=== PATIENT | male | born 1965 | race Caucasian/White ===

== ENCOUNTER → 2021-12-24 11:24 | Outpatient (BNVA) | payer OTHER, SELFPAY | PROVIDERS: PCP Internal Medicine; Visit Provider Anesthesiology | DX: R76.8 Other specified abnormal immunological findings in serum (principal); N50.812 Left testicular pain; G89.4 Chronic pain syndrome; M51.37 Other intervertebral disc degeneration, lumbosacral region; M16.12 Unilateral primary osteoarthritis, left hip | CPT/HCPCS: 99202 ==

== ENCOUNTER → 2022-07-29 12:51 | Outpatient (BNVA) | payer OTHER, SELFPAY | PROVIDERS: PCP Internal Medicine; Visit Provider Neurological Surgery | DX: M54.2 Cervicalgia (principal) | CPT/HCPCS: 99212 ==